=== PATIENT | female | born 1955 | race Caucasian/White ===

== ENCOUNTER → 2018-11-10 14:31 | Outpatient (CLI) | payer BC, SELFPAY ==
[2018-11-13 08:39] LABS: HEPATITIS B SURFACE AG Negative (Negative); Hep B Surface Antibodies Non Reactive (.); Hep C Antibodies <0.1 s/co ratio (0.0-0.9)
[2018-11-14 13:02] LABS: ANTINUCLEAR ANTIBODIES DIRECT Negative (Negative); Anti-Mitochondrial AB 23.3 Units (0.0-20.0)
== END ==
PROVIDERS: Family Provider Family Medicine; PCP Family Medicine; Referring Provider Internal Medicine Gastroenterology; Visit Provider Internal Medicine Gastroenterology
DX: K75.9 Inflammatory liver disease, unspecified (principal)
CPT/HCPCS: 36415; 83516; 86038; 86706; 86803; 87340

== ENCOUNTER → 2019-01-23 12:49 | Outpatient (CLI) | payer BC, SELFPAY ==
[2019-01-23 14:15] LABS: AST(SGOT) 106 U/L (15-37); Alanine Aminotransfer ALT/SGPT 87 U/L (13-56); Albumin, Serum 3.8 g/dL (3.2-5.0); Alkaline Phosphatase 108 U/L (45-117); Bilirubin, Direct 0.14 mg/dL (0.00-0.30); Globulin 3.8 g/dL (2.2-4.2); Protein, Total 7.6 g/dL (6.4-8.2)
[2019-01-25 15:52] LABS: ANTINUCLEAR ANTIBODIES DIRECT Negative (Negative); Anti-Mitochondrial AB 21.4 Units (0.0-20.0)
== END ==
PROVIDERS: Family Provider Family Medicine; PCP Family Medicine; Referring Provider Internal Medicine Gastroenterology; Visit Provider Internal Medicine Gastroenterology
DX: K76.0 Fatty (change of) liver, not elsewhere classified (principal); K75.9 Inflammatory liver disease, unspecified
CPT/HCPCS: 36415; 80076; 83516; 86038

== ENCOUNTER 2019-08-21 08:11 | Day surgery (SDC) | payer MEDICARE, OTHER, SELFPAY ==
[2019-08-21 09:02] LABS: Color, Urine Yellow (Yellow); Glucose, Dipstick Normal (Normal); Ketone-Dipstick Negative (Negative); Leukocyte Esterase-Dipstick 100 /ul (Negative); Nitrite-Dipstick Negative (Negative); Occult Blood-Urine Negative /ul (Negative); Protein-Dipstick 30 mg/dl (Negative); Red Blood Cells-Urine 0 SEEN /hpf (0-5); Specific Gravity, Urine 1.015 (1.002-1.030); Urine Bilirubin Dipstick Negative (Negative); Urine Clarity Sl. Cloudy (Clear); Urine Urobilinogen 1 mg/dl (Normal)
[2019-08-21 09:03] VITALS: BP 129/95; PULSE 95; RESP 16; TEMP 36.9; O2SAT 99; BMI 28.5
[2019-08-21 09:16] LABS: Bacteria RARE /hpf (None Seen); Hyaline Cast 0-5 SEEN /lpf (0-5); Mucous, Urine RARE /hpf (<or=2+); Squamous Epithelial Cells - UA 0-5 SEEN /hpf (5-10); White Blood Cells 0-5 SEEN /hpf (0-5)
[2019-08-21] MEDS: Lactated Ringers 1,000 ML 100 ML IV (09:19)
--- NOTE | 2019-08-21 09:40 | PCM.OPRPT ---
Problem List (1) Erythematous bladder mucosa Status: Acute (2) Urge incontinence Status: Acute Report of Operation Date of Procedure: 08/21/19 Pre-Operative Diagnosis: bladder mucosa erythema, urge incontinence Post-Operative Diagnosis: same Surgery/Procedure Performed:: cystoscopy, bladder biopsy times 4, with fulguration Description of Surgical Findings:: erythema significantly improved from cystoscopy in the office. posterior bladder wall right and left biopsies taken. Type of Anesthesia:: MAC Specimen's removed: bladder biopsy times 4 Estimated Blood Loss (mL): 5cc Description of Procedure: The patient is a 64-year-old female who I am evaluating for incontinence and urinary tract infections. She had a cystoscopy in the office revealing diffuse erythematous bladder mucosa. After discussing the risk benefits and alternatives, she agreed to proceed with biopsy under anesthesia. The patient was taken to the operating room and placed on the operating room table. Anesthesia monitored the head, neck, airway, IV access and vital signs throughout the case. Once anesthesia was appropriately administered the patient was placed into dorsal lithotomy position was prepped and draped in usual sterile fashion. Cystourethroscopy was performed revealing decreased erythema diffusely. 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 Biopsies were taken of the most erythematous mucosa along the posterior bladder wall. These areas were fulgurated for hemostatic control. The patient's bladder was then emptied and the case was terminated. She was awakened and taken to the recovery room in good condition. There were no complications during this procedure. Grafts/Implants Used: none - Complications none - Admit VTE Documentation VTE Present on Admission: Yes VTE Mechan Device Prophylaxis: SCD's VTE Pharm Prophylaxis ordered?: No Reason prophylaxis not ordered:: Treatment Not Indicated
--- NOTE | 2019-08-21 09:43 | DCINST_ITS ---
Discharge Diet: No Restrictions Discharge Activity: May not drive while taking narcotic pain medications. May resume sexual activity in: 2 weeks Call your doctor if you observe: Fever of 101 or Higher, Inability to urinate, Inability to have a bowel movement, Shortness of breath, Chest pain, Calf discomfort, Uncontrolled pain Allergies/Adverse Reactions: Allergies Sulfa (Sulfonamide Antibiotics) Allergy (Verified 08/21/19 09:02) Shortness of breath Medications to take at Discharge Amlodipine [Norvasc] 5 mg PO DAILY 08/15/19 Fluoxetine HCl [Prozac] 40 mg PO DAILY 08/15/19 Levothyroxine Sodium [Levoxyl] 75 mcg PO DAILY 08/15/19 Omeprazole [Prilosec] 40 mg PO DAILY 08/15/19 Rosuvastatin Calcium [Crestor] 10 mg PO DAILY 08/15/19 Vitamin E 400 unit PO DAILY 08/15/19 Primary Care Physician: Gaby Jett PA-C [Primary Care Provider] - Test Results: Test results from this visit will be discussed in further detail at your follow- up appointment, if applicable. Please Follow Up With: Chayo Peralta MD When: call office for appt to be seen in 1 week Proposed Discharge Date: 08/21/19
--- NOTE | 2019-08-21 09:45 | BLA_PTH ---
PATIENT: CARINA SCHREIBER LOC: [facility] [place] U#:[id number] AGE/SX: 64/F ROOM: RE08/21/[address]: Dr. Chayo Peralta MD : [id number] BED: DIS: 08/21/2019 SPEC #: [id number] RECD: 08/21/19 12:32 STATUS: NIALL RERoman #: [id number] SHAYLEE: 08/21/19 09:[address]: Chayo Peralta DEPT: SURGICAL PATHOLOGY RECD BY: Richie Moreno ENTERED: 08/21/19 13:13 SP TYPE: BLADDER BX OTHR DR: Gaby Jett PA-C Tissues: Urinary bladder, NOS Procedures: Surgery Specimen Level IV HEADER OPERATION: Cysto, bladder biopsy PRE-OP DIAGNOSIS: Bladder mucosal erythema, urge incontinence TISSUE SUBMITTED: Bladder biopsy MICROSCOPIC DIAGNOSIS Bladder, biopsy: Fragments of urothelial mucosa with chronic inflammation. Negative for malignancy. SJ:brodie 08/22/19 COMMENT Detrusor muscle is not present in the submitted specimen. Correlation with clinical, cystoscopic findings and appropriate follow up are necessary. MICROSCOPIC DESCRIPTION Slides are reviewed. GROSS DESCRIPTION Received in fixative is one container labeled with the patient's name and designated bladder biopsy. The specimen consists of multiple irregular fragments of light darnell soft tissue that in aggregate measure 0.4 x 0.2 x 0.1 cm. The specimen is totally submitted in one cassette. / SJ:brodie 08/21/19 TC:4 CPT: 66577
[2019-08-21] MEDS: Cefazolin 2 GM in 0.9% Normal Saline 100 ML IV (09:59)
[2019-08-21 10:15] VITALS: BP 106/73; BP 129/95; PULSE 80; RESP 16; TEMP 36.8; O2SAT 97
[2019-08-21 10:20] VITALS: BP 109/79; BP 129/95; PULSE 77; RESP 16; O2SAT 94
[2019-08-21 10:25] VITALS: BP 115/74; BP 129/95; PULSE 78; RESP 16; O2SAT 92
[2019-08-21 10:30] VITALS: BP 112/77; BP 129/95; PULSE 79; RESP 16; TEMP 36.7; O2SAT 97
[2019-08-21 12:09] VITALS: BP 115/74; BP 129/95; PULSE 78; RESP 16; TEMP 36.7; O2SAT 98
== END 2019-08-21 12:12 | disposition home or self-care (01) ==
LOC: SDC 08:12 → AC 08:14
PROVIDERS: Family Provider Family Medicine; PCP Family Medicine; Referring Provider Urology; Visit Provider Urology
PROC: 0TBB8ZX Excision of Bladder, Via Natural or Artificial Opening Endoscopic, Diagnostic (ICD-10-PCS; CPT 52204; principal; 2019-08-21 09:35)
DX: N30.20 Other chronic cystitis without hematuria (principal); R39.15 Urgency of urination; N39.3 Stress incontinence (female) (male); N95.2 Postmenopausal atrophic vaginitis; N32.89 Other specified disorders of bladder; R35.1 Nocturia; I10 Essential (primary) hypertension; E78.5 Hyperlipidemia, unspecified; E03.9 Hypothyroidism, unspecified; G47.00 Insomnia, unspecified; F41.1 Generalized anxiety disorder; M81.0 Age-related osteoporosis without current pathological fracture; Z79.899 Other long term (current) drug therapy; Z87.440 Personal history of urinary (tract) infections
CPT/HCPCS: 52204; 81001; 88305; J7120; J2405

== ENCOUNTER 2021-03-10 14:13 | Emergency (ER) | payer MEDICARE, OTHER, SELFPAY ==
[2021-03-10 14:14] VITALS: BP 128/79; PULSE 82; RESP 19; TEMP 36.8; O2SAT 99; BMI 30.1
--- NOTE | 2021-03-10 14:34 | EKG12_ITS ---
Test Reason : JAW PAIN Blood Pressure : / mmHG Vent. Rate : 081 BPM Atrial Rate : 081 BPM P-R Int : 194 ms QRS Dur : 066 ms QT Int : 400 ms P-R-T Axes : 039 -22 028 degrees QTc Int : 464 ms Normal sinus rhythm Inferior infarct , age undetermined Abnormal ECG Confirmed by SHREE BUCIO, FRANCO ([id number]), editor dictionary ROSA CR ([id number]) on 03/12/2021 11:19:35 AM Referred By: /TONY Confirmed By:FRANCO SWANN MD
--- NOTE | 2021-03-10 14:36 | EX.ED.DYSGE1 ---
HPI History of Present Illness Chief Complaint: Other, Pain/Inj Informant: patient and spouse/S.O. Narrative Narrative: 65-year-old female states that 1 week ago she went to [facility] with pains in the right side of her abdomen. She states she had a CAT scan and blood work and had several doses of morphine and felt better but was not pain-free. No definitive cause was found. She followed up the next day with her primary care doctor who did not find a diagnosis. She followed up with her GI specialist as she had already had an endoscopic procedure scheduled. She states she has not heard the results of that. She states now the abdomen is still minimally tender but the pain has gone up to behind her arms and her armpits and her back and her bilateral jaw and temples. She states that putting on her deodorant this morning caused her pain. She states that her pain is best when she lays flat. She thought she might be constipated because she was feeling bloated and with the abdominal pain so she took some magnesium citrate and had a large bowel movement. No fevers or rashes. No vomiting. No new medications. She called her primary care doctor's office today who recommended that she come to emergency. [facility] Medical History HTN (hypertension) Hypercholesteremia Home Medications amlodipine 5 mg PO DAILY 08/15/19 [History Last Taken 08/21/19 07:00] fluoxetine 40 mg PO DAILY 08/15/19 [History Last Taken Unknown] levothyroxine 75 mcg PO DAILY 08/15/19 [History Last Taken 08/21/19 07:00] omeprazole 40 mg PO DAILY 08/15/19 [History Last Taken 08/21/19 07:00] rosuvastatin 10 mg PO DAILY 08/15/19 [History Last Taken Unknown] vitamin E 400 unit PO DAILY 08/15/19 [History Last Taken Unknown] ketorolac 10 mg PO TID PRN 5 Days #15 tab 03/10/21 [Rx Last Taken Unknown] Allergy/AdvReac Type Severity Reaction Status Date / Time Sulfa (Sulfonamide Allergy Shortness Verified 03/10/21 14:16 Antibiotics) of breath no surgical history (Noncontributory) Social History (Updated 05/25/21 @ 14:[address] Ravi Braswell, DO) Smoking Status: Never smoker substance use type: does not use ROS ROS ED Constitutional Constitutional ED: Denies chills or weight loss Eyes Eyes: Denies change in vision or diplopia ENT ENT ED: Reports other Details: Bilateral jaw and oriental orthodox pain pain with opening and closing mouth ; Denies ear pain, rhinorrhea or sore throat Cardiovascular Cardiovascular: Denies chest pain, orthopnea, palpitations or racing heartbeat Respiratory/Chest Respiratory/Chest: Denies cough, dyspnea or orthopnea Gastrointestinal Gastrointestinal: Reports abdominal pain and constipation; Denies diarrhea, nausea or vomiting Genitourinary Genitourinary ED: Denies dysuria, hematuria or urinary frequency Musculoskeletal Musculoskeletal: Reports myalgias; Denies arthralgias Integumentary Denies abscess or rash Neurologic Neurologic: Denies headache(s) or weakness Psychiatric Psychiatric: Denies anxiety, depression, suicidal ideation or suicidal thoughts Endocrine Endocrinology: Denies polydipsia, polyphagia or polyuria Allergic/Immunologic Allergic/Immunologic ED: Denies mouth swelling, tongue swelling or urticaria EXAM Physical Exam Const Vital Signs: 03/10/21 14:14 03/10/21 14:21 03/10/21 14:44 Temperature 98.3 F Temperature Source Temporal Pulse Rate 82 Respiratory Rate 19 H Respiratory Effort Normal Respiratory Pattern Normal Blood Pressure 128/79 H Blood Pressure Mean 95 Pulse Ox 99 Oxygen Delivery Method Room Air Room Air 03/10/21 16:48 Temperature Temperature Source Pulse Rate 96 Respiratory Rate 16 Respiratory Effort Respiratory Pattern Blood Pressure Blood Pressure Mean Pulse Ox Oxygen Delivery Method Positive well nourished and well developed General Appearance ED: well developed HEENT Reports normocephalic, head/scalp atraumatic and moist mucous membranes Eyes PERRL and EOMs intact bilaterally Neck no lymphadenopathy, supple and no JVD Resp normal respiratory effort and clear to auscultation bilaterally Cardio regular rate, regular rhythm and no murmurs GI normal to inspection, nondistended, normoactive bowel sounds and non-tender Palpation: soft Back/Spine no CVA tenderness and normal ROM Extremity normal to inspection General Extremety ED: Negative for edema General Extremity: Negative for edema Neuro oriented x3 and CN's II-XII intact bilaterally Sensorium / Orientation: alert Motor Exam: strength 5/5 throughout Psych mental status grossly normal Mood & Affect: Negative for depressed or tearful Skin no rashes or lesions noted and no wounds MDM MDM MDM Narrative Medical decision making narrative: Patient's blood work essentially negative. Her troponin is negative which is very helpful as she has had 1 week of constant symptoms. D-dimer is in the normal range. My interpretation of the chest x-ray is no acute process. Her EKG is normal sinus. Gallbladder ultrasound was obtained which shows some mild sludge. We talked about the possibility of maybe needing a HIDA scan but if this would be her gallbladder would be very atypical. Patient received morphine for pain. Later Toradol. She is resting more comfortably. Patient to be discharged home Lab Data Attestation: I reviewed the patient's lab results. Labs: Laboratory Results - last 24 hr 03/10/21 03/10/21 03/10/21 14:25 14:25 14:25 WBC 9.2 RBC 5.10 Hgb 14.4 Hct 43.7 MCV 85.7 MCH 28.2 MCHC 33.0 RDW Std Deviation 46.7 H RDW Coeff of Marysol 14.9 H Plt Count 300 MPV 8.9 Immature Gran % (Auto) 0.300 Neut % (Auto) 47.8 Lymph % (Auto) 39.9 Rankin % (Auto) 10.8 H Eos % (Auto) 0.8 Baso % (Auto) 0.4 Absolute Neuts (auto) 4.4 Absolute Lymphs (auto) 3.67 Nucleated RBC % 0 D-Dimer Quant (PE/DVT) 0.37 Sodium 137 Potassium 3.7 Chloride 106 Carbon Dioxide 23.0 Anion Gap 8 BUN 14 Creatinine 0.95 Estim Creat Clear Calc 47.54 Est GFR (MDRD) Af Amer 75 Est GFR (MDRD) Non-Af 62 BUN/Creatinine Ratio 14.8 Glucose 93 Calcium 10.0 Total Bilirubin 0.50 Direct Bilirubin 0.16 AST 70 H ALT 60 H Alkaline Phosphatase 105 Troponin I < 0.015 Total Protein 8.7 H Albumin 4.1 Globulin 4.6 H Lipase 101 Radiography Diagnostic Testing: Radiology Impression Chest X-Ray 03/10/21 14:50 IMPRESSION: No acute abnormality is seen. Electronically Signed: Niranjan Alvarado MD at 15:05 EDT , Service support , Gallbladder Ultrasound 03/10/21 15:15 IMPRESSION: 1. Tiny amount of gallbladder sludge. Electronically Signed: Tu Vela MD at 16:55 EDT , Service support , EKG Initial EKG: Attestation: I personally reviewed and interpreted this EKG as follows: Comments: EKG shows a normal sinus rhythm at a rate of 81. No ectopy or concerning features of ACS Discharge Plan Triage Chief Complaint: Other, Pain/Inj ED Provider: Ravi Braswell Dx/Rx/DC Orders Clinical Impression: Acute back pain, Abdominal pain, acute Instructions: ED Pain, Acute, Uncertain Cause Prescriptions: New ketorolac 10 mg tablet 10 mg PO TID PRN (Reason: pain) 5 Days Qty: 15 RF: 0 No Action amlodipine 5 MG tablet 5 mg PO DAILY RF: 0 levothyroxine 75 MCG tablet 75 mcg PO DAILY RF: 0 omeprazole 20 MG capsule 40 mg PO DAILY RF: 0 fluoxetine 20 MG capsule 40 mg PO DAILY RF: 0 vitamin E 400 UNIT capsule 400 unit PO DAILY RF: 0 rosuvastatin 10 MG tablet 10 mg PO DAILY RF: 0 Primary Care Provider: Gaby Jett Referrals: Gaby Jett PA-C [Primary Care Provider] - 3-5 Days (You may wish to discuss with your doctor a HIDA scan) Disposition Disposition: Home, self care
[2021-03-10] MEDS: Ondansetron 4 MG/2 ML Vial IV (14:41)
[2021-03-10] MEDS: Morphine 4 MG/ML Syringe IV (14:41)
--- NOTE | 2021-03-10 14:50 | RAD_ITS ---
STUDY: X-RAY CHEST REASON FOR EXAM: Female, 65 years old. Chest pain TECHNIQUE: Single AP portable view of the chest. COMPARISON: None. FINDINGS: EKG electrodes are seen. The lungs are clear and expanded. There is no demonstrated pleural abnormality. Normal size heart. Normal mediastinum and cornelius. Normal visualized pulmonary arteries. Normal visualized aortic arch and descending thoracic aorta. There are degenerative changes of the visualized thoracic spine. Normal visualized ribs, clavicles, and shoulders. There is no demonstrated abnormality of the visualized soft tissue structures of the upper abdomen. RAD/Chest 1 View (Portable) IMPRESSION: No acute abnormality is seen. Electronically Signed: Niranjan Alvarado MD at 15:05 EDT , Service support ,
[2021-03-10 14:52] LABS: Absolute Lymphocyte Count 3.67 X10^3/uL (0.83-4.51); Absolute Neutrophil Count 4.4 X10^3/uL (2.0-7.7); Basophil# 0.04 X10^3/uL; Basophil% 0.4 % (0-1); Eosinophil# 0.07 X10^3/uL; Eosinophils% 0.8 % (0-5); Hematocrit 43.7 % (37-47); Hemoglobin 14.4 g/dL (12.0-15.0); Lymphocyte # 3.67 X10^3/ul (0.83-4.51); Lymphocyte % 39.9 % (19-41); Mean Corpuscular Hgb 28.2 pg (27.0-32.0); Mean Corpuscular Volume 85.7 fL (81-99); Mean Platelet Vol. 8.9 fl (6.2-12.0); Monocyte# 0.99 X10^3/uL; Monocyte% 10.8 % (0-10); NRBC Flagged by Analyzer 0 % (0-5); Neutrophil # 4.39 X10^3/uL (2.7-7.7); Neutrophil % 47.8 % (47-70); Platelet Count 300 K/mm3 (150-450); RBC Distribution Width CV 14.9 % (11.6-14.6); RBC Distribution Width SD 46.7 fl (35.1-43.9); White Blood Count 9.2 K/mm3 (4.4-11.0)
[2021-03-10 15:00] LABS: D-Dimer Quantitative (DVT/PE) 0.37 FEU/ug/m (0.27-0.49)
[2021-03-10 15:09] LABS: AST(SGOT) 70 U/L (15-37); Alanine Aminotransfer ALT/SGPT 60 U/L (13-56); Albumin, Serum 4.1 g/dL (3.2-5.0); Alkaline Phosphatase 105 U/L (45-117); Anion Gap 8 (5-15); BUN 14 mg/dL (7-18); BUN/Creat Ratio 14.8 RATIO (10-20); Bilirubin, Direct 0.16 mg/dL (0.00-0.30); Chloride 106 mmol/L (98-107); Creatinine, Serum 0.95 mg/dL (0.55-1.02); EST Glomerular Filtration Rate 62 mL/min (>60); Est Glom Filt Rate - Afr Amer 75 mL/min (>60); Estimated Creatinine Clearance 47.54 ml/min; Globulin 4.6 g/dL (2.2-4.2); Glucose 93 mg/dL (74-106); Lipase 101 U/L (73-393); Potassium 3.7 mmol/L (3.5-5.1); Protein, Total 8.7 g/dL (6.4-8.2); Sodium Level 137 mmol/L (136-145)
--- NOTE | 2021-03-10 15:15 | US_ITS ---
STUDY: ABDOMINAL ULTRASOUND - RIGHT UPPER QUADRANT REASON FOR VISIT: Female, 65 years old ABD PAIN LAST WEEK SHOULDER PAIN TODAY TECHNIQUE: Ultrasound evaluation of the right upper quadrant was performed with real-time and static ca-scale imaging. TECHNICAL QUALITY: Adequate. COMPARISON: None. FINDINGS: Liver: The liver measures 17.1 cm. There is increased echogenicity consistent with fatty infiltration. The bile ducts are within normal limits. There is hepatic color flow. The direction of portal flow is hepatopetal. There is no demonstrated mass lesion. Gallbladder: Normal distended gallbladder. The gallbladder wall measures 2 mm. There is a negative sonographic Landon''s sign. There is no pericholecystic fluid. There are no gallstones. A tiny amount of sludge is present. Common Bile Duct (C.B.D.): The common bile duct measures 3 mm. Pancreas: Unremarkable visualized aspects of the head and body of the pancreas. The tail was not. There is normal echogenicity of the pancreas. There is no demonstrated pancreatic mass or cyst. Right Kidney: Normal size of the right kidney. The right kidney measures cm. Normal renal cortex. The right cortex measures cm. There is no demonstrated renal mass or cyst. There is no right hydronephrosis. US/Gallbladder IMPRESSION: 1. Tiny amount of gallbladder sludge. Electronically Signed: Tu Vela MD at 16:55 EDT , Service support ,
[2021-03-10] MEDS: Ketorolac 30 MG/ML Syringe IV (16:05)
[2021-03-10 16:48] VITALS: PULSE 96; RESP 16
[2021-03-10 17:14] VITALS: BP 137/70; PULSE 75; RESP 18; O2SAT 99
== END 2021-03-10 17:16 | disposition home or self-care (01) ==
PROVIDERS: Emergency Provider Emergency Medicine; PCP Family Medicine
DX: R10.9 Unspecified abdominal pain (principal); M54.9 Dorsalgia, unspecified; I10 Essential (primary) hypertension; E78.00 Pure hypercholesterolemia, unspecified; Z79.890 Hormone replacement therapy; Z79.899 Other long term (current) drug therapy
CPT/HCPCS: 71045; 76705; 80048; 80076; 83690; 84484; 85025; 85379; 93005; 96374; 96375; 99285; J7030; A4216; J2405

== ENCOUNTER 2021-03-12 08:04 | Emergency (ER) | payer MEDICARE, OTHER, SELFPAY ==
[2021-03-12 08:04] VITALS: BP 148/71; PULSE 85; RESP 16; TEMP 36.4; O2SAT 98; BMI 29.2
--- NOTE | 2021-03-12 08:27 | EKG12_ITS ---
Test Reason : SHOULDER PAIN Blood Pressure : / mmHG Vent. Rate : 078 BPM Atrial Rate : 078 BPM P-R Int : 184 ms QRS Dur : 072 ms QT Int : 414 ms P-R-T Axes : 043 -21 036 degrees QTc Int : 471 ms Normal sinus rhythm Inferior infarct , age undetermined Abnormal ECG Confirmed by SHREE BUCIO, FRANCO ([id number]), editor in chief ROSA CR ([id number]) on 03/13/2021 10:19:26 AM Referred By: MARISOL Confirmed By:FRANCO SWANN MD
--- NOTE | 2021-03-12 08:29 | EDS_ITS ---
HPI History of Present Illness Chief Complaint: Upper Extremity Injury Narrative Narrative: 65-year-old female presenting with right trapezius pain, nausea. She states she was seen previously at [facility] and had lab work and imaging done couple of weeks ago which was negative. She was seen at [facility] last week for abdominal pain and had an ultrasound done which showed sludge. After both visits to the ED she did follow-up with her primary care physician. She has had upper endoscopy which was normal. She also has for next week. a scheduled HIDA scan Is not complaining today of any abdominal pain but has pain in the right trapezius. She states that she took her pain medication this morning without eating first. She denies fever but admits to chills. She has loss of taste. She has no cough or shortness of breath [facility] Medical History HTN (hypertension) Hypercholesteremia Home Medications amlodipine 5 mg PO DAILY 08/15/19 [History Last Taken 08/21/19 07:00] fluoxetine 40 mg PO DAILY 08/15/19 [History Last Taken Unknown] levothyroxine 75 mcg PO DAILY 08/15/19 [History Last Taken 08/21/19 07:00] omeprazole 40 mg PO DAILY 08/15/19 [History Last Taken 08/21/19 07:00] rosuvastatin 10 mg PO DAILY 08/15/19 [History Last Taken Unknown] vitamin E 400 unit PO DAILY 08/15/19 [History Last Taken Unknown] ketorolac 10 mg PO TID PRN 5 Days #15 tab 03/10/21 [Rx Last Taken Unknown] ondansetron 4 mg PO Q8H PRN PRN #10 tab 03/12/21 [Rx Last Taken Unknown] Allergy/AdvReac Type Severity Reaction Status Date / Time Sulfa (Sulfonamide Allergy Shortness Verified 03/12/21 08:07 Antibiotics) of breath Social History Smoking Status: Never smoker substance use type: does not use ROS ROS ED Constitutional Constitutional ED: Reports chills; Denies fever(s), frequent falls or sweats Eyes Eyes: Denies blurry vision or change in vision ENT ENT ED: Denies ear pain, rhinorrhea or sore throat Cardiovascular Cardiovascular: Denies chest pain, palpitations or racing heartbeat Respiratory/Chest Respiratory/Chest: Denies cough, dyspnea or sputum Gastrointestinal Gastrointestinal: Reports nausea; Denies abdominal pain, constipation, diarrhea or vomiting Genitourinary Genitourinary ED: Denies dysuria, hematuria or urinary frequency Musculoskeletal Musculoskeletal: Reports other Details: Pain in right trapezius ; Denies arthralgias, myalgias or neck pain Integumentary Denies abscess, Abrasions or rash Neurologic Neurologic: Denies headache(s), paresthesias or weakness Psychiatric Psychiatric: Denies anxiety, depression, suicidal ideation or suicidal thoughts Endocrine Endocrinology: Denies polydipsia or polyuria EXAM Physical Exam Const Vital Signs: 03/12/21 08:04 Temperature 97.5 F L Temperature Source Temporal Pulse Rate 85 Respiratory Rate 16 Blood Pressure 148/71 H Blood Pressure Mean 96 Pulse Ox 98 Oxygen Delivery Method Room Air Positive obese General Appearance ED: NAD; Negative for pallor Nutritional Appearance: obese HEENT Reports normocephalic, head/scalp atraumatic and moist mucous membranes normocephalic Eyes PERRL and EOMs intact bilaterally Neck full ROM, no lymphadenopathy and supple Chest Wall inspection of chest normal and palpation of chest normal Resp normal respiratory effort and clear to auscultation bilaterally Auscultation: Negative for rales, rhonchi or wheezes Cardio regular rate and regular rhythm GI normal to inspection, nondistended, normoactive bowel sounds and non-distended Auscultation: normoactive bowel sounds Palpation: soft Narrative: Deferred Back/Spine no CVA tenderness Back/Spine Narrative: Right cervical paraspinal musculature tenderness extending into the right trapezius. No midline spinal tenderness. General Back: Negative for CVA tenderness Cervical Spine: Negative for cervical spine tenderness Extremity normal to inspection and full ROM General Extremety ED: Yes tenderness; Negative for edema General Extremity: Negative for edema Neuro oriented x3 and CN's II-XII intact bilaterally Sensorium / Orientation: alert Motor Exam: strength 5/5 throughout Psych mental status grossly normal Attitude: No agitated Mood & Affect: anxious Skin no rashes or lesions noted and no wounds General Skin Exam: Negative for jaundice or pallor MDM MDM MDM Narrative Medical decision making narrative: Patient presenting with some right trapezius pain which is new for her. She denies any trauma. She states she felt nauseous after taking p.o. Toradol today on an empty stomach. Her symptoms have since resolved after getting morphine and Zofran. Given the pain in her right shoulder and her symptoms I did obtain an EKG which is sinus rhythm at 78 bpm. Her lab work is normal. Patient's urine shows 500 leukocyte esterase however it slightly contaminated and I will send this for culture. She denies any urinary symptoms. Troponin negative. Chest x-ray as interpreted by myself shows no acute cardiopulmonary process and radiology does agree. Patient had a negative D-dimer on her last visit. She is already had a CT of the abdomen pelvis. I recommend she follow-up with her PCP to ensure resolution of her symptoms. I will give her some nausea medicine for home. She wants to try to take her Toradol again with a nausea medicine and on a full stomach. Impression: 1. Right trapezius strain 2. Medication side effect Discharge Plan Triage Chief Complaint: Upper Extremity Injury ED Provider: Lamonte Mccabe Dx/Rx/DC Orders Instructions: ED Shoulder Pain, Uncertain Cause Prescriptions: New ondansetron 4 mg tablet,disintegrating 4 mg PO Q8H PRN PRN (Reason: Nausea) Qty: 10 RF: 0 No Action amlodipine 5 MG tablet 5 mg PO DAILY RF: 0 levothyroxine 75 MCG tablet 75 mcg PO DAILY RF: 0 omeprazole 20 MG capsule 40 mg PO DAILY RF: 0 fluoxetine 20 MG capsule 40 mg PO DAILY RF: 0 vitamin E 400 UNIT capsule 400 unit PO DAILY RF: 0 rosuvastatin 10 MG tablet 10 mg PO DAILY RF: 0 ketorolac 10 mg tablet 10 mg PO TID PRN (Reason: pain) 5 Days Qty: 15 RF: 0 Primary Care Provider: Gaby Jett Referrals: Gaby Jett PA-C [Primary Care Provider] - Disposition Disposition: Home, self care
[2021-03-12] MEDS: Ondansetron 4 MG/2 ML Vial IV (08:38)
[2021-03-12] MEDS: Morphine 4 MG/ML Syringe IV (08:38)
[2021-03-12 08:39] VITALS: O2SAT 98
--- NOTE | 2021-03-12 08:40 | RAD_ITS ---
STUDY: X-RAY CHEST REASON FOR EXAM: Female, 65 years old. Chest pain TECHNIQUE: Single AP portable view of the chest. COMPARISON: Comparison is made with prior study dated 03/12/2021. FINDINGS: EKG electrodes are seen. Hyperinflation. The lungs are clear. There is no demonstrated pleural abnormality. Normal size heart. Normal mediastinum and cornelius. Normal visualized pulmonary arteries. There is atherosclerotic tortuosity of the aortic arch and descending thoracic aorta. There are diffuse degenerative changes of the visualized thoracic spine. Normal visualized ribs, clavicles, and shoulders. There is no demonstrated abnormality of the visualized soft tissue structures of the upper abdomen. RAD/Chest 1 View (Portable) IMPRESSION: No acute abnormality is present. Electronically Signed: Niranjan Alvarado MD at 9:33 EDT , Service support ,
[2021-03-12 08:52] LABS: Absolute Lymphocyte Count 2.43 X10^3/uL (0.83-4.51); Absolute Neutrophil Count 4.4 X10^3/uL (2.0-7.7); Basophil# 0.04 X10^3/uL; Basophil% 0.5 % (0-1); Eosinophil# 0.05 X10^3/uL; Eosinophils% 0.7 % (0-5); Hematocrit 41.7 % (37-47); Hemoglobin 14.1 g/dL (12.0-15.0); Lymphocyte # 2.43 X10^3/ul (0.83-4.51); Lymphocyte % 32.2 % (19-41); Mean Corp Hgb Conc 33.8 g/dL (32-36); Mean Corpuscular Hgb 28.5 pg (27.0-32.0); Mean Corpuscular Volume 84.4 fL (81-99); Monocyte# 0.65 X10^3/uL; Monocyte% 8.6 % (0-10); NRBC Flagged by Analyzer 0 % (0-5); Neutrophil # 4.35 X10^3/uL (2.7-7.7); Neutrophil % 57.6 % (47-70); Platelet Count 279 K/mm3 (150-450); RBC Distribution Width CV 14.8 % (11.6-14.6); RBC Distribution Width SD 45.3 fl (35.1-43.9); Red Blood Count 4.94 M/mm3 (4.2-5.4); White Blood Count 7.6 K/mm3 (4.4-11.0)
[2021-03-12 09:03] LABS: Color, Urine Yellow (Yellow); Glucose, Dipstick Normal (Normal); Ketone-Dipstick 5 mg/dl (Negative); Leukocyte Esterase-Dipstick 500 /ul (Negative); Nitrite-Dipstick Negative (Negative); Occult Blood-Urine 10 /ul (Negative); Protein-Dipstick 30 mg/dl (Negative); Urine Bilirubin Dipstick Negative (Negative); Urine Clarity Sl. Cloudy (Clear); Urine Urobilinogen Normal (Normal)
[2021-03-12 09:09] LABS: Red Blood Cells-Urine 0-5 SEEN /hpf (0-5)
[2021-03-12 09:10] LABS: Bacteria 1+ /hpf (None Seen); Mucous, Urine 1+ /hpf (<or=2+); Squamous Epithelial Cells - UA 0-5 SEEN /hpf (5-10); White Blood Cells 25-50 SEEN /hpf (0-5)
[2021-03-12 09:13] LABS: AST(SGOT) 72 U/L (15-37); Alanine Aminotransfer ALT/SGPT 58 U/L (13-56); Albumin, Serum 3.9 g/dL (3.2-5.0); Alkaline Phosphatase 103 U/L (45-117); Anion Gap 9 (5-15); BUN 15 mg/dL (7-18); BUN/Creat Ratio 17.4 RATIO (10-20); Bilirubin, Direct 0.17 mg/dL (0.00-0.30); Calcium,Total 9.2 mg/dL (8.5-10.1); Chloride 106 mmol/L (98-107); Creatinine, Serum 0.86 mg/dL (0.55-1.02); EST Glomerular Filtration Rate 70 mL/min (>60); Est Glom Filt Rate - Afr Amer 85 mL/min (>60); Estimated Creatinine Clearance 52.51 ml/min; Globulin 4.2 g/dL (2.2-4.2); Glucose 109 mg/dL (74-106); Potassium 3.6 mmol/L (3.5-5.1); Protein, Total 8.1 g/dL (6.4-8.2); Sodium Level 138 mmol/L (136-145)
[2021-03-12 10:08] VITALS: BP 119/80; PULSE 77; RESP 16; O2SAT 98
[2021-03-12 12:44] VITALS: BP 116/71
== END 2021-03-12 12:48 | disposition home or self-care (01) ==
PROVIDERS: Emergency Provider Student in an Organized Health Care Education/Training Program; PCP Family Medicine
DX: S29.012A Strain of muscle and tendon of back wall of thorax, initial encounter (principal); E78.00 Pure hypercholesterolemia, unspecified; T50.905A Adverse effect of unspecified drugs, medicaments and biological substances, initial encounter; X58.XXXA Exposure to other specified factors, initial encounter; Z79.899 Other long term (current) drug therapy
CPT/HCPCS: 71045; 80048; 80076; 81001; 84484; 85025; 87086; 87088; 87426; 93005; 96374; 96375; 99284; A4216; J2405

== ENCOUNTER → 2024-10-08 | Outpatient (CLI) | payer MEDICARE, OTHER, SELFPAY ==
--- NOTE | 2024-10-08 08:42 | NEURO ---
NCS and/or EMG Patient Report Ordering Doctor: Gaby Jett DATE OF SERVICE: 10/08/24 Clinical Summary: 69 year old female presenting with complaints of bilateral upper and lower extremity weakness for the past 3 years. An EMG/NCS of the bilateral upper extremities was performed. Nerve Conduction Studies Summary: Nerve conduction studies of the upper extremities was performed. The median-D2 SNAP distal latency was prolonged bilaterally. The median motor conduction velocity was reduced in the forearm segment bilaterally. Needle Examination Summary: Needle examination of select muscles of the bilateral upper extremities demonstrated a higher proportion of motor unit action potentials with increased amplitude, increased duration, polyphasia, and reduced recruitment in the bilateral abductor pollicis brevis muscles. Impression: This is an abnormal bilateral upper extremity study. 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 There is no electrodiagnostic evidence of a diffuse neurogenic or myopathic process in the bilateral upper extremities. Multi Select Codes Neurology Neurology Interp Codes: 06182-05 Musc test done w/n test comp (interp) (2) and 05482-65 Nrv cndj test 9-10 studies (interp)
== END | disposition home or self-care (01) ==
PROVIDERS: PCP Family Medicine; Referring Provider Family Medicine; Visit Provider Family Medicine
DX: M62.81 Muscle weakness (generalized) (principal); R20.2 Paresthesia of skin
CPT/HCPCS: 95886; 95911

== ENCOUNTER → 2024-10-24 | Outpatient (CLI) | payer MEDICARE, OTHER, SELFPAY ==
--- NOTE | 2024-10-24 10:12 | NEURO ---
NCS and/or EMG Patient Report Ordering Doctor: Gaby Jett DATE OF SERVICE: 10/24/24 Liane presents for electrodiagnostic testing of the lower extremities. She reports weakness in both legs. She denies numbness or tingling. Electrodiagnostic findings: Peroneal motor nerve demonstrates normal distal latency, amplitude and conduction velocity bilaterally. Normal tibial motor response bilaterally. Normal tibial and peroneal F?waves. Normal H?reflex bilaterally. Sural and superficial peroneal responses are normal bilaterally. Needle EMG testing was performed in the lower limbs. All muscles tested showed no evidence of denervation with normal motor unit action potentials. Electrodiagnostic impression: This is a normal electrodiagnostic study of the lower limbs. There is no electrodiagnostic evidence for peripheral neuropathy or lumbosacral radiculopathy. There is no electrodiagnostic evidence for myopathy. Multi Select Codes Neurology Neurology Interp Codes: 84637-35 Musc test done w/n test comp (interp) (2) and 68585-45 Nrv cndj test 9-10 studies (interp)
== END | disposition home or self-care (01) ==
LOC: PSN 08:36
PROVIDERS: PCP Family Medicine; Referring Provider Family Medicine; Visit Provider Family Medicine
DX: R20.2 Paresthesia of skin (principal); M62.81 Muscle weakness (generalized)
CPT/HCPCS: 95886; 95911

== ENCOUNTER → 2024-12-12 | Outpatient (CLI) | payer MEDICARE, OTHER, SELFPAY ==
[2024-12-12 11:56] LABS: Cholesterol 371 mg/dL (<=200); High Density Lipoprotein 41 mg/dL; Low Density Lipoprotein Calc. 264 mg/dL; Triglycerides 331 mg/dL; Very Low Density Lipoprotein 66 mg/dL (5-40); cholesterol:hdl ratio screen 9.12
== END | disposition home or self-care (01) ==
PROVIDERS: PCP Family Medicine; Referring Provider Internal Medicine Cardiovascular Disease; Visit Provider Internal Medicine Cardiovascular Disease
DX: E78.5 Hyperlipidemia, unspecified (principal)
CPT/HCPCS: 36415; 80061

== ENCOUNTER → 2025-01-10 | Outpatient (CLI) | payer MEDICARE, OTHER, SELFPAY ==
--- NOTE | 2025-01-10 06:33 | ECHOD_ITS ---
Reason For Study Reason For Study: DYSPNEA Procedure This was a 2D Doppler, Color Flow transthoracic echocardiogram. Exam performed in department. Left Ventricle Normal LV size. Mild concentric left ventricular hypertrophy. The left ventricular ejection fraction is 70 %. Stage 1 diastolic dysfunction. Right Ventricle Normal right ventricle. Atria The left and right atria are normal. Mitral Valve Trivial mitral valve insufficiency. Tricuspid Valve Trivial tricuspid valve insufficiency. Normal pulmonary artery pressure. Aortic Valve Trisinus/trileaflet aortic valve. Mildly calcified aortic valve annulus. Pulmonic Valve The pulmonic valve is not well visualized. Great Vessels Normal sized aortic root. Pericardium/Pleural No pericardial effusion. MMode/2D Measurements & Calculations LVIDd: 4.3 cm IVSd: 1.1 cm LVOT diam: 2.0 cm LVIDs: 2.7 cm LVPWd: 1.2 cm LVOT area: 3.0 cm2 RVDd: 3.0 cm FS: 36.6 % Ao root diam: 3.2 cm LAV(MOD-bp): 39.0 ml LVAd ap4: 24.4 cm2 LAV(MOD-bp) Indexed: 21.6 ml/m2 LVLd ap4: 7.9 cm LAV(MOD-sp2): 39.6 ml EDV(MOD-sp4): 60.3 ml LAV(MOD-sp4): 34.4 ml EDV(sp4-el): 63.6 ml LVAs ap4: 11.6 cm2 LVLs ap4: 6.0 cm ESV(MOD-sp4): 18.8 ml ESV(sp4-el): 19.0 ml EF(MOD-sp4): 68.8 % EF(sp4-el): 70.2 % SV(MOD-sp4): 41.5 ml SV(sp4-el): 44.7 ml LA A4 area: 14.1 cm2 SI(MOD-sp4): 23.0 ml/m2 LA dimension(2D): 3.6 cm RA A4 area: 9.6 cm2 Time Measurements MV dec time: 0.20 sec Doppler Measurements & Calculations MV E max silvano: 91.9 cm/sec Lat Peak E' Silvano: 6.8 cm/sec Med Peak E' Silvano: 6.6 cm/sec MV A max silvano: 118.0 cm/sec E/E' lat: 13.6 E/E' med: 14.0 MV E/A: 0.78 MV V2 max: 124.2 cm/sec Ao V2 max: 156.8 cm/sec MV max P.2 mmHg MV dec slope: 468.2 cm/sec2 Ao max P.8 mmHg MV V2 mean: 68.0 cm/sec Ao V2 mean: 107.1 cm/sec MV mean P.2 mmHg Ao mean P.2 mmHg MV V2 VTI: 33.4 cm Ao V2 VTI: 37.0 cm AV (velocity ratio): 0.69 MVA(VTI): 2.3 cm2 ONELIA(I,D): 2.1 cm2 ONELIA(V,D): 2.1 cm2 LV V1 max: 112.2 cm/sec SV(LVOT): 76.4 ml PA V2 max: 126.6 cm/sec LV V1 max P.0 mmHg PA V2 mean: 91.7 cm/sec LV V1 mean P.6 mmHg LV V1 mean: 75.3 cm/sec LV V1 VTI: 25.6 cm TR max silvano: 229.1 cm/sec TR max P.0 mmHg ECHO/Echo Complete Interpretation Summary Mild concentric left ventricular hypertrophy. The left ventricular ejection fraction is 70 %. Stage 1 diastolic dysfunction. Mildly calcified aortic valve annulus. Ordering Physician: Paul Verde Referring Physician: Paul Verde Performed By: Patti Reza RCS
--- NOTE | 2025-01-10 09:28 | STRESSREP_ITS ---
Stress Test Report Date: 01/10/2025 Procedure: Pharmacologic stress nuclear imaging study Indications: Dyspnea on exertion Consent: Per the patient Procedure: The patient underwent pharmacologic (Regadenoson 0.4mg ) evaluation with a peak heart rate of 91 beats per minute (61%predicted maximal heart rate) and a peak blood pressure of 120/72 mmHg. The baseline ECG demonstrated sinus rhythm. The peak pharmacologic ECG no ischemic changes. There were no cardiac dysrhythmias pretest, during pharmacologic infusion, or recovery. There was no complaint of chest discomfort during pharmacologic infusion or recovery. The patient was injected with 11.9 millicuries of technetium 99m Cardiolite and subsequently rest SPECT Cardiolite nuclear imaging was obtained in the horizontal long, vertical long, and short axis views. The patient underwent pharmacologic (Regadenoson) evaluation. The patient was injected with 34.5 millicuries of technetium 99m Cardiolite and subsequently stress SPECT Cardiolite nuclear imaging was obtained in the horizontal long, vertical long, and short axis views. A gated Cardiolite study at peak stress was obtained. The examination was stopped secondary to completion of protocol. Rest and stress SPECT Cardiolite nuclear imaging status post realignment, normalization, and attenuation correction demonstrate no fixed or reversible perfusion defects. There is end systolic thickening and brightening. The gated Cardiolite study demonstrates myocardial thickening and inward wall motion. The reported LVEF is 88%. Impression: 1. Pharmacologic (Regadenoson) evaluation 2. Peak pharmacologic ECG with no ischemic changes. 3. There were no cardiac dysrhythmias pretest, during pharmacologic infusion, or recovery. 5. Rest and stress SPECT Cardiolite nuclear imaging demonstrate relative uniform tracer uptake and myocardial perfusion appearing within normal limits. 6. The gated Cardiolite study reports an LVEF of 88%. This note was generated with [employer] software. It may contain incorrect words, spelling, and punctuation that were not noted in checking the note before signing.
== END | disposition home or self-care (01) ==
LOC: CVS 06:33
PROVIDERS: PCP Family Medicine; Referring Provider Internal Medicine Cardiovascular Disease; Visit Provider Internal Medicine Cardiovascular Disease
DX: Z01.818 Encounter for other preprocedural examination (principal); R06.09 Other forms of dyspnea; R00.2 Palpitations; I10 Essential (primary) hypertension; E78.5 Hyperlipidemia, unspecified; R29.6 Repeated falls
CPT/HCPCS: 78452; 93017; 93306; A9500; A4216; J2785

== ENCOUNTER → 2025-01-23 | Outpatient (CLI) | payer MEDICARE, OTHER, SELFPAY ==
[2025-01-23 14:48] LABS: AST(SGOT) 79 U/L (<=31); Alanine Aminotransfer ALT/SGPT 67 U/L (<=34); Albumin, Serum 4.5 g/dL (3.4-4.8); Alkaline Phosphatase 96 U/L (35-104); Bilirubin, Direct 0.14 mg/dL (0.00-0.30); Cholesterol 211 mg/dL (<=200); Globulin 3.2 g/dL (2.2-4.2); High Density Lipoprotein 49 mg/dL; Low Density Lipoprotein Calc. 120 mg/dL; Protein, Total 7.7 g/dL (5.9-8.4); Total Bilirubin 0.32 mg/dL (0.00-1.30); Triglycerides 213 mg/dL; Very Low Density Lipoprotein 43 mg/dL (5-40); cholesterol:hdl ratio screen 4.34
== END | disposition home or self-care (01) ==
LOC: LAB 09:54
PROVIDERS: PCP Family Medicine; Referring Provider Nurse Practitioner Family; Visit Provider Nurse Practitioner Family
DX: E78.00 Pure hypercholesterolemia, unspecified (principal)
CPT/HCPCS: 36415; 80061; 80076

== ENCOUNTER → 2025-02-28 | Outpatient (CLI) | payer MEDICARE, OTHER, SELFPAY ==
--- NOTE | 2025-02-28 06:48 | MRI_ITS ---
PROCEDURE: BRAIN W/WO CONTRAST 02/28/2025 REASON FOR EXAM: DIZZINESS TECHNIQUE: Routine brain MRI without and with intravenous contrast. Multiplanar and multisequence images were obtained. CONTRAST: Clariscan VOLUME: 15 mL COMPARISON: None. FINDINGS: There is prominence of the ventricles and sulci indicative of atrophy. No midline shift, mass effect, or extra-axial fluid collections are identified. There are counseled in areas and numerous foci of hyperintense T2/FLAIR signal intensity in the periventricular and deep white matter relating to chronic small vessel ischemic disease. There are chronic ischemic changes in the magalys. No diffusion restriction is identified on diffusion-weighted imaging to suggest acute/subacute ischemic changes. No acute intracranial hemorrhage or acute territorial infarction is seen. No abnormal enhancement is identified. Bilateral cranial nerves 7 and 8 complexes are within normal limits with no abnormal enhancement or enhancing mass. Bilateral pre ganglionic nerve 5 are within normal limits. Bilateral cerebellopontine angles are intact. Brainstem is intact. Bilateral mastoid air cells are well pneumatized. Corpus callosum, optic chiasm, suprasellar cistern, and cerebellar tonsils are within normal range. Major vascular flow voids are present. Bilateral orbits are intact. Nasal septum is deviated to the left. MRI/Brain W/WO Contrast IMPRESSION: 1. Bilateral internal auditory canals are within normal limits with no abnormal enhancement or enhancing mass. 2. No acute intracranial process or abnormal enhancement. 3. Chronic small vessel ischemic disease. 4. Atrophy. Reading Location: [facility], 1928–1983
== END | disposition home or self-care (01) ==
LOC: OPMRI 06:57
PROVIDERS: PCP Family Medicine; Referring Provider Otolaryngology; Visit Provider Otolaryngology
DX: R42 Dizziness and giddiness (principal)
CPT/HCPCS: 70553; A9575

== ENCOUNTER → 2025-05-03 | Outpatient (CLI) | payer MEDICARE, OTHER, SELFPAY ==
[2025-05-03 12:19] LABS: AST(SGOT) 69 U/L (<=31); Alanine Aminotransfer ALT/SGPT 73 U/L (<=34); Albumin, Serum 4.4 g/dL (3.4-4.8); Alkaline Phosphatase 95 U/L (35-104); Bilirubin, Direct 0.10 mg/dL (0.00-0.30); Cholesterol 216 mg/dL (<=200); Globulin 3.2 g/dL (2.2-4.2); Low Density Lipoprotein Calc. 132 mg/dL; Triglycerides 123 mg/dL; Very Low Density Lipoprotein 25 mg/dL (5-40); cholesterol:hdl ratio screen 3.62
== END | disposition home or self-care (01) ==
LOC: LAB 09:49
PROVIDERS: PCP Family Medicine; Referring Provider Nurse Practitioner Family; Visit Provider Nurse Practitioner Family
DX: E78.00 Pure hypercholesterolemia, unspecified (principal)
CPT/HCPCS: 36415; 80061; 80076

== ENCOUNTER → 2025-05-30 | Outpatient (CLI) | payer MEDICARE, OTHER, SELFPAY ==
[2025-05-30 13:11] LABS: Anion Gap 13 (5-15); BUN 20 mg/dL (4-19); BUN/Creat Ratio 23.0 RATIO (10-20); Calcium,Total 9.7 mg/dL (7.6-11.0); Carbon Dioxide 22.8 mmol/L (21.0-32.0); Chloride 106 mmol/L (98-108); Glucose 98 mg/dL (70-99); Potassium 4.1 mmol/L (3.3-5.1); Pro- Brain NATRIURETIC PEPTIDE 200 pg/mL (<=900)
== END | disposition home or self-care (01) ==
LOC: LAB 11:37
PROVIDERS: PCP Family Medicine; Referring Provider Nurse Practitioner Family; Visit Provider Nurse Practitioner Family
DX: R06.09 Other forms of dyspnea (principal)
CPT/HCPCS: 36415; 80048; 83880

== ENCOUNTER → 2025-06-26 | Outpatient (CLI) | payer MEDICARE, OTHER, SELFPAY ==
--- NOTE | 2025-06-26 09:37 | CDU_ITS ---
Reason For Study Reason For Study: Dizziness Rt. Velocities/BP Lt. Velocities/BP Prox CCA 81.7/10.2 cm/sec. Prox CCA 74.0/16.8 cm/sec. Mid CCA 60.7/13.5 cm/sec. Mid CCA 57.5/16.8 cm/sec. Dist CCA 54.1/16.3 cm/sec. Dist CCA 66.3/17.9 cm/sec. Prox ICA 54.1/18.2 cm/sec. Prox ICA 71.8/21.2 cm/sec. Mid ICA 63.0/16.8 cm/sec. Mid ICA 61.9/22.3 cm/sec. Dist ICA 53.0/20.4 cm/sec. Dist ICA 80.6/28.9 cm/sec. Rt. ICA/CCA = 1.0. Lt. ICA/CCA = 1.4. Prox ECA 55.7/10.3 cm/sec. Prox ECA 74.0/9.1 cm/sec. Rt. Vert. 40.9/9.7 cm/sec. Lt. Vert. 33.3/13.5 cm/sec. Right Extracranial There is heterogeneous, irregular atherosclerotic plaque noted in the right common carotid artery. The right common carotid artery is tortuous. There is heterogeneous, irregular atherosclerotic plaque noted in the right internal carotid artery. The right internal carotid artery is very tortuous. There is heterogeneous, irregular atherosclerotic plaque noted in the right external carotid artery. Antegrade flow is noted in the right vertebral artery. Left Extracranial There is heterogeneous, irregular atherosclerotic plaque noted in the left common carotid artery. The atherosclerotic plaque causes acoustic shadowing. There is heterogeneous, irregular atherosclerotic plaque noted in the left internal carotid artery. There is intimal thickening but no significant atherosclerotic plaque noted in the left external carotid artery. Antegrade flow is noted in the left vertebral artery. Procedure Carotid Duplex 96029. This is a Carotid Duplex examination using B-mode, color flow and specral Doppler. This is a venous duplex using B-mode, color flow and spectral Doppler. VL/Carotid Duplex Ultrasound Interpretation Summary Mild (<50%) stenosis right extracranial internal carotid. Mild (<50%) stenosis left extracranial internal carotid. Patent and antegrade vertebrals bilaterally. Limited by calcific shadowing, alternative imaging may be beneficial Ordering Physician: Esvin Langston Referring Physician: Gaby Jett PA Performed By: Jeannine Boateng RVT
== END | disposition home or self-care (01) ==
LOC: CVS 09:34
PROVIDERS: PCP Family Medicine; Referring Provider Nurse Practitioner Family; Visit Provider Nurse Practitioner Family
DX: I65.22 Occlusion and stenosis of left carotid artery (principal)
CPT/HCPCS: 93880

== ENCOUNTER 2025-07-28 14:04 | Emergency (ER) | payer MEDICARE, OTHER, SELFPAY ==
[2025-07-28 14:05] VITALS: BP 113/84; PULSE 93; RESP 16; TEMP 36.8; O2SAT 96
[2025-07-28 14:11] VITALS: BMI 31.5
--- NOTE | 2025-07-28 14:28 | EX.ED.GENINJ ---
HPI History of Present Illness Chief Complaint: Head Injury Narrative Narrative: Patient is a 70-year-old female presenting to the emergency department for a fall. Patient has a past medical history of dizziness, palpitations, hypertension, dyslipidemia, recurrent falls. Patient was at [employer] shopping when she was walking outside and looked down at the curb and then fell backwards striking the back of her head. She does not think she lost consciousness. She is endorsing a headache now. Denies any neck or back pain. Denies any hip or extremity pain. She denies any use of oral anticoagulation. at bedside helps provide additional history and states that she has had recurrent falls over the past few years and is followed up with multiple neurologist who cannot determine the cause of the falls. States the last 1 was about 6 to 7 months ago. [facility] Medical History Tracheostomy present Sleep apnea, obstructive Adult hypothyroidism Panic disorder Essential hypertension Dyslipidemia Orthostatic hypotension Osteopenia Recurrent falls Panic Benzodiazepine causing adverse effect in therapeutic use PTSD (post-traumatic stress disorder) Carpal tunnel syndrome Vision problems Seizures GERD (gastroesophageal reflux disease) IBS (irritable bowel syndrome) UTI (urinary tract infection) Arthritis Hypercholesteremia HTN (hypertension) Home Medications ?Medication ?Instructions ?Recorded ?Last Taken ?Type levothyroxine 75 mcg tablet 75 mcg PO DAILY 08/15/19 08/21/19 07:00 History pregabalin 100 mg capsule (Lyrica) 100 mg PO BID #60 caps 09/05/23 Unknown Rx acetaminophen 325 mg tablet 325 mg PO Q4H PRN 12/07/24 Unknown History cholecalciferol (vitamin D3) 25 25 mcg PO QDAY 12/07/24 Unknown History mcg (1,000 unit) tablet melatonin 3 mg capsule 3 mg PO HS PRN 12/07/24 Unknown History vitamin E acetate PO DAILY 12/07/24 Unknown History rosuvastatin 10 mg tablet (Crestor) 10 mg PO DAILY #90 tabs 12/18/24 Unknown Rx sertraline 100 mg tablet 100 mg PO BID #180 tabs 01/29/25 Unknown Rx clonazepam 0.5 mg tablet 0.5 mg PO .COMPLEX anxiety 30 days 05/01/25 Unknown Rx #60 tabs amlodipine 5 mg tablet 5 mg PO QHS 05/30/25 Unknown History calcium citrate 250 mg PO QDAY 05/30/25 Unknown History cyanocobalamin (vitamin B-12) 1,000 mcg PO DAILY 05/30/25 Unknown History glucosamine-chondroitin 250 mg-200 1 tab PO DAILY 05/30/25 Unknown History mg tablet meloxicam 7.5 mg tablet 7.5 mg PO BID 05/30/25 Unknown History omeprazole 40 mg capsule,delayed 40 mg PO QDAY 05/30/25 Unknown History release prednisone 10 mg tablet mg PO 05/30/25 Unknown History Allergy/AdvReac Type Severity Reaction Status Date / Time Sulfa (Sulfonamide Allergy Shortness Verified 07/28/25 14:08 Antibiotics) of breath Family History Father Cancer Asthma Sister Cancer Brother Cancer Asthma Mother Heart disease Hypertension Other Breast cancer Melanoma Mental disorder Myocardial infarction Seizures Surgical History History of colonoscopy (~03/2025) History of back surgery History of partial hysterectomy Social History household members: spouse Smoking Status: Never smoker alcohol intake: never substance use type: does not use caffeine: Yes Type: tea frequency: daily ROS ROS ED ROS Narrative See HPI EXAM Physical Exam Narrative Exam Narrative: Vital signs: Reviewed General: Alert and oriented x 3. No acute distress HEENT: Head is normocephalic and atraumatic. Cephalhematoma to the left posterior crown of the head. There is a overlying abrasion but no laceration. Midface is stable and nontender to palpation. Pupils equal round and reactive. Nares are patent. No septal hematoma. Oropharynx and throat exams normal. No oropharyngeal trauma. Neck: Supple without lymphadenopathy nontender. No midline cervical spinal tenderness to palpation. No step-offs or deformities. Cardiovascular: Regular rate and rhythm, no murmurs. No rubs or gallops. Normal S1 and S2 Respiratory: Clear to auscultation bilaterally. No wheezes, rales, rhonchi Chest: Chest wall is atraumatic and nontender to palpation. No crepitus, erythema or ecchymosis. Abdominal: Soft and nontender. Normal bowel sounds. No guarding or rebound. Nonsurgical abdomen Extremities: Hips are stable and nontender to palpation. Extremities are atraumatic and nontender to palpation with normal active range of motion. No midline thoracic or lumbar spinal tenderness to palpation. No step-offs or deformities. Skin: No rash or redness. Neurological: Cranial nerves II through XII are grossly intact. Normal strength and sensation. Normal cerebellar function The rest of the physical exam is unremarkable Const Vital Signs: 07/28/25 14:05 07/28/25 14:14 07/28/25 15:10 Temperature 98.3 F 98.3 F Temperature Source Oral Pulse Rate 93 93 Respiratory Rate 16 16 Respiratory Effort Normal Blood Pressure 113/84 H 113/84 H Blood Pressure Mean 93 93 Pulse Ox 96 96 Oxygen Delivery Method Room Air Room Air MDM MDM MDM Narrative Medical decision making narrative: Patient is a 70-year-old female presenting emergency department for a fall with head trauma. Patient was seen and examined. Vitals are stable. Patient resting in bed comfortably no acute distress. CT of the brain and cervical spine were ordered given the patient's age. She is not on any oral anticoagulation. Her physical exam reveals no other signs of trauma other than the cephalhematoma to the head. No indication for additional imaging. Patient had no chest pain, shortness of breath, lightheadedness, dizziness or palpitations prior to the fall. I offered obtaining additional labs and imaging to try to determine the cause of the fall although it is unlikely that a cause will be found here in the emergency department given she has had recurrent falls for years and has seen multiple neurologist with no diagnosis. Patient has been declined this and stated they feel comfortable with CT brain and cervical spine being done. Tylenol given for analgesia. CT of the brain shows no intracranial pathology. Posterior soft tissue swelling. CT cervical spine with degenerative changes, no acute abnormalities. Patient was reevaluated. Updated on the negative CT imaging. Ambulated by myself and the patient did well. Patient is appropriate for outpatient management. Instructed to ice the area on the back of her head for pain and take Tylenol and Motrin as well. Patient discharged from the Emergency Department. I do not feel that the patient's evaluation reveals any acute reason for admission at this time. I instructed them to either follow-up with their primary care physician or promptly return to the Emergency Department for reevaluation should symptoms worsen or new symptoms develop. I explained what symptoms would indicate the need to return to the emergency department. Shared decision making was used. The patient voiced understanding of the treatment plan and is agreeable with it. Clinical impression Fall Head trauma History & Record Review Discussion w/independent historian: Patient and Significant other Radiography Diagnostic Testing: Clinical Impression(s) from Imaging Studies Brain CT 07/28/25 14:40 IMPRESSION: Age-appropriate appearance of the brain. Negative for acute intracranial pathology Posterior soft tissue swelling. Degenerative changes of the cervical spine. Negative for acute abnormality of the cervical spine. Reading Location: [facility] Cervical Spine CT 07/28/25 14:40 IMPRESSION: Age-appropriate appearance of the brain. Negative for acute intracranial pathology Posterior soft tissue swelling. Degenerative changes of the cervical spine. Negative for acute abnormality of the cervical spine. Reading Location: [facility] Discharge Plan Triage Chief Complaint: Head Injury ED Provider: Chelly Patrick Dx/Rx/DC Orders Clinical Impression: Head injury, Fall Instructions: ED Scalp Contusion, ED Head Injury (Adult) Prescriptions: No Action omeprazole 40 mg capsule,delayed release(DR/EC) 40 mg PO QDAY sertraline 100 mg tablet 100 mg PO BID Qty: 180 1RF cholecalciferol (vitamin D3) 25 mcg (1,000 unit) tablet 25 mcg PO QDAY melatonin 3 mg capsule 3 mg PO HS PRN acetaminophen 325 mg tablet 325 mg PO Q4H PRN vitamin E acetate PO DAILY cyanocobalamin (vitamin B-12) 1,000 mcg PO DAILY glucosamine-chondroitin 250-200 mg tablet 1 tab PO DAILY Rx Instructions: give after food/meal prednisone 10 mg tablet PO calcium citrate 250 mg calcium tablet 250 mg PO QDAY meloxicam 7.5 mg tablet 7.5 mg PO BID amlodipine 5 mg tablet 5 mg PO QHS levothyroxine 75 MCG tablet 75 mcg PO DAILY pregabalin [Lyrica] 100 mg capsule 100 mg PO BID Qty: 60 1RF rosuvastatin [Crestor] 10 mg tablet 10 mg PO DAILY Qty: 90 3RF clonazepam 0.5 mg tablet 0.5 mg PO .COMPLEX 30 Days Qty: 60 2RF Rx Instructions: Take 0.5 mg every morning and 0.5 mg every night; Primary Care Provider: Gaby Jett Referrals: Gaby Jett PA-C [Primary Care Provider, Medical] - As soon as possible Activity Restrictions/Additional Instructions: Your evaluation in the Emergency Department did not reveal any acute reason for admission. However, I want to emphasize that you may be early in the course of a disease process or illness even if it is not present. For this reason you should follow-up within 24 hours for reevaluation with either your primary care physician or if necessary back here in the Emergency Department. You should return to the Emergency Department immediately if your symptoms worsen or new symptoms develop. Print Language: Azeri Disposition Disposition: Home, Self Care Discharge Date/Time: 07/28/25 15:16
--- NOTE | 2025-07-28 14:40 | CT_ITS ---
PROCEDURE: BRAIN/HEAD WITHOUT CONTRAST; SPINE CERVICAL WITHOUT CONTRAS 07/28/2025 REASON FOR EXAM: FALL, HEAD TRAUMA Same level fall. TECHNIQUE: Procedure Code: CTBR; CTSPC Modality: CT Procedure: BRAIN/HEAD WITHOUT CONTRAST; SPINE CERVICAL WITHOUT CONTRAS Coronal and Sagittal reconstruction series were provided. One or more dose reduction techniques were used (e.g., Automated exposure control, adjustment of the mA and/or kV according to patient size, use of iterative reconstruction technique. RADIATION DOSE SUMMARY: CTDlvol: DLP: 1324 mGycm COMPARISON: None. FINDINGS: CT brain Cerebrum: Mild loss ofcerebral volume. Negative for mass the frontal, parietal, temporal and occipital lobes otherwisenegative. White matter: Moderate periventricular white matter changes. Cerebellum: Negative. Negative for mass. Negative for acute infarction. CSF pathways and ventricles: Negative. Negative for ventricular dilatation or obstruction. Basal ganglia and thalami: Negative. No acute infarctions. Brainstem: Midbrain, magalys and medulla negative. Calvarium: Negative. Negative for fractures. Orbital structures: Globes negative. Extraocular muscles negative. Paranasal sinuses: No air fluid levels. Remainder of the sinuses negative. Vascular structures: [id number] calcifications of the intracranial structures. Other: :Soft tissue swelling overlying the posterior scalp near the vertex. Negative for acute intracranial hemorrhage. Negative for acute infarction. CT cervical spine Cervical spine: Odontoid normal. C1-2 interface negative. Moderate degenerative disc disease of the lower cervical spine. Moderate facet joint hypertrophy of the lower cervical spine. Vertebral body heights and alignment otherwise negative. Negative for fractures or dislocations. Cervicothoracic junction negative. Adjacent structures otherwise negative. Remainder of exam negative. CT/Spine Cervical without Contras IMPRESSION: Age-appropriate appearance of the brain. Negative for acute intracranial pathology Posterior soft tissue swelling. Degenerative changes of the cervical spine. Negative for acute abnormality of the cervical spine. Reading Location: [id number]
[2025-07-28 15:10] VITALS: BP 113/84; PULSE 93; RESP 16; TEMP 36.8; O2SAT 96
== END 2025-07-28 15:16 | disposition home or self-care (01) ==
PROVIDERS: Emergency Provider Student in an Organized Health Care Education/Training Program; PCP Family Medicine; Visit Provider Student in an Organized Health Care Education/Training Program
DX: S09.90XA Unspecified injury of head, initial encounter (principal); W10.1XXA Fall (on)(from) sidewalk curb, initial encounter; Y93.01 Activity, walking, marching and hiking; Y92.512 Supermarket, store or market as the place of occurrence of the external cause; R29.6 Repeated falls; I10 Essential (primary) hypertension; E78.00 Pure hypercholesterolemia, unspecified; M47.812 Spondylosis without myelopathy or radiculopathy, cervical region; Z79.890 Hormone replacement therapy; Z79.899 Other long term (current) drug therapy
CPT/HCPCS: 70450; 72125; 99282